=== PATIENT | female | born 1980 | race Hispanic/Latino ===

== ENCOUNTER 2020-12-19 10:46 | Emergency (ER) | payer OTHER ==
[~2020-12-19] VITALS: Ht 152.4 cm; Wt 99.8 kg
[2020-12-19] MEDS ORDERED: TESSALON PERLE100 MG PO (11:42)
[2020-12-19] MEDS ORDERED: CEFDINIR300 MG PO (11:42)
== END 2020-12-19 11:49 | disposition home or self-care (01) ==
LOC: FSED 10:55
DX: J20.9 Acute bronchitis, unspecified (principal); R05.9 Cough, unspecified; E66.01 Morbid (severe) obesity due to excess calories
CPT/HCPCS: 71045; 81003; 81025; 99283